=== PATIENT | female | born 1995 | race Two or more races ===

== ENCOUNTER 2022-10-10 14:25 | Emergency (ER) | payer MEDICAID, OTHER ==
[~2022-10-10] VITALS: Ht 162.6 cm; Wt 62.1 kg
[2022-10-10 15:17] VITALS: BP 121/73
[2022-10-10] MEDS ORDERED: ACETAMINOPHEN 500 MG TAB PO ONE (15:45)
[2022-10-10] MEDS ORDERED: BENZ1LOZ12 MT (17:10)
[2022-10-10] MEDS ORDERED: PENI500T2 PO (17:10)
[2022-10-10] MEDS ORDERED: ACET1CAP14 PO (17:10)
== END 2022-10-10 17:21 | disposition home or self-care (01) ==
LOC: ER 14:25
DX: J02.0 Streptococcal pharyngitis (principal); Z79.899 Other long term (current) drug therapy; Z20.822 Contact with and (suspected) exposure to COVID-19
CPT/HCPCS: 36415; 87426; 87804; 87880